=== PATIENT | female | born 1960 | race Two or more races ===

== ENCOUNTER 2020-06-13 21:10 | Emergency (ER) | payer BC, OTHER ==
[~2020-06-13] VITALS: Ht 162.6 cm; Wt 56.7 kg
[2020-06-13] MEDS ORDERED: THIAMINE INJ 100 MG in SODIUM CHLORIDE 0.9% 1,000 ML IV ONE (22:15)
[2020-06-13 22:31] LABS: Basophils # (auto) 0.1 10 ^3/uL (0-0.2); Basophils % (auto) 0.9 % (0.0-2.0); Eosinophils # (auto) 0 10 ^3/uL (0-0.8); Hemoglobin 9.4 g/dL (12.2-16.2); Lymphocytes # (auto) 0.9 10 ^3/uL (0.4-5.4); Monocytes # (auto) 0.4 10 ^3/uL (0-1.3); White Blood Cell 6.4 10^3/uL (4.4-10.8)
[2020-06-13 22:33] LABS: Eosinophils % (auto) 0.1 % (0.0-7.0); Hematocrit 25.8 % (36.0-46.0); Lymphocytes % (auto) 14.5 % (10.0-50.0); Mean Corpuscular Hemoglobin 37.7 pg (28.0-32.0); Mean Corpuscular Hgb Conc. 36.4 g/dL (32.0-36.0); Mean Corpuscular Volume 103.7 fL (80.0-100.0); Monocytes % (auto) 5.7 % (0.0-12.0); Neutrophils % (auto) 78.8 % (37.0-80.0); Platelet Count (auto) 120 10^3/uL (140-450); Red Blood Cells 2.48 10^6/uL (4.0-5.20); Red Cell Distribution Width 14.7 % (11.8-14.3)
[2020-06-13 22:47] LABS: Calcium 8.3 mg/dL (8.5-10.1); Potassium 3.6 mmol/L (3.5-5.1)
[2020-06-13 22:51] LABS: Total Protein 5.9 g/dL (6.4-8.2)
[2020-06-13] MEDS ORDERED: THIAMINE 100mg/ml INJ (200mg/2ml VIAL) IV ONE (23:15)
[2020-06-13 23:20] LABS: INR 1.22 (0.9-1.15); Partial Thromboplastin Time 30.7 sec (23.0-31.2)
[2020-06-13 23:24] LABS: Lactic Acid w/Reflex 3.6 mmol/L (0.4-2.0)
[2020-06-13] MEDS ORDERED: SODIUM CHL 3% 500 ML IV ONE (23:45)
[2020-06-14 00:17] VITALS: BP 104/56
== END 2020-06-14 00:28 | disposition short-term general hospital (02) ==
LOC: EDBD 21:10 → ER 21:13
DX: I60.2 Nontraumatic subarachnoid hemorrhage from anterior communicating artery (principal); F10.129 Alcohol abuse with intoxication, unspecified; E87.1 Hypo-osmolality and hyponatremia; Z20.822 Contact with and (suspected) exposure to COVID-19; Y90.5 Blood alcohol level of 100-119 mg/100 ml
CPT/HCPCS: 36415; 70450; 72125; 74176; 80053; 80320; 82140; 82728; 83605; 83880; 84484; 85025; 85379; 85610; 85730; 87426; 93005; 96365; 99285; J3411; J7030

== ENCOUNTER → 2023-12-08 | Outpatient (CLI) | payer BC | END | disposition home or self-care (01) | LOC: XYW 08:14 | PROVIDERS: ATTEND Internal Medicine | DX: I34.81 Nonrheumatic mitral (valve) annulus calcification (principal); I70.0 Atherosclerosis of aorta; F17.210 Nicotine dependence, cigarettes, uncomplicated | CPT/HCPCS: 93306 ==